=== PATIENT | male | born 1950 | race African-American/Black ===

== ENCOUNTER → 2018-04-29 | Outpatient (CLI) | payer MEDICARE ==
[~2018-04-29] MED LIST: OMNIPAQUE 350 MG/ML, 100ML BOTTLE ONE
== END | disposition home or self-care (01) ==
LOC: CFH 13:21
PROVIDERS: ATTEND Otolaryngology
DX: D38.0 Neoplasm of uncertain behavior of larynx (principal); R07.0 Pain in throat
CPT/HCPCS: 70491; 82565; Q9967

== ENCOUNTER 2018-07-05 11:50 | Inpatient (IN) | payer MEDICARE ==
[~2018-07-05] VITALS: Ht 182.9 cm; Wt 68.5 kg
[~2018-07-05 11:50] MED LIST changes: +AMIT100T PO; +AMLO10TA8 PO; +ATEN100T PO; +HYDR120S6 PO; +LISI40TA PO; +OMEP-110 PO; -OMNIPAQUE 350 MG/ML, 100ML BOTTLE ONE; +OXYC1TAB7 PO; +SIMV10TA3 PO; +SODI15OR3 PO
[2018-07-05] MEDS ORDERED: ONDANSETRON 2MG/ML, 2ML ONE (12:24)
[2018-07-05] MEDS ORDERED: MORPHINE SULFATE 4 MG/ML, 1ML ONE (12:25)
[2018-07-05] MEDS ORDERED: ONDANSETRON 2MG/ML, 2ML IVPush ONE (12:30)
[2018-07-05] MEDS ORDERED: MORPHINE SULFATE 4 MG/ML, 1ML IVPush PRN (12:30)
[2018-07-05] MEDS ORDERED: SODIUM CHLORIDE FLUSH 10ML SYR IVF ONE (12:30)
[2018-07-05 13:20] LABS: ALANINE AMINOTRANSFERASE 49 U/L (12-78); ALBUMIN 2.9 g/dL (3.4-5.0); ANION GAP 10 mmol/L (5-15); CHLORIDE 105 mmol/L (98-107)
[2018-07-05 13:23] LABS: MICROSCOPIC NOT IND
[2018-07-05 13:23] LABS: ALKALINE PHOSPHATASE 89 U/L (45-117); BILIRUBIN,TOTAL 0.5 mg/dL (0.2-1.0); TOTAL PROTEIN 7.6 g/dL (6.4-8.2)
[2018-07-05] MEDS ORDERED: CEFTAZIDIME PMX 2 GM/50ML 50 ML IV ONE (13:30)
[2018-07-05 13:31] LABS: CULTURE INDICATED? NO
[2018-07-05 13:33] LABS: MEAN CORPUSCULAR HEMOGLOBIN 28.4 pg (27.5-34.5); MEAN CORPUSCULAR HGB CONC 33.7 g/dL (33.2-36.2); MEAN CORPUSCULAR VOLUME 84.1 fL (81-97); MEAN PLATELET VOLUME 8.2 fL (7.4-10.4); PLATELET COUNT 63 x10^3/uL (130-400); RED BLOOD COUNT 3.06 x10^6/uL (4.38-5.82); RED CELL DISTRIBUTION WIDTH 14.2 % (9.4-14.8)
[2018-07-05 13:35] LABS: MD YES
[2018-07-05 13:43] LABS: BAND#(MANUAL) 0.11 x10^3/uL; BANDS%(MANUAL) 14 % (0-7); LYMPH#(MANUAL) 0.13 x10^3/uL (1-3.4); LYMPHS% (MANUAL) 16 % (22-44); MONOS#(MANUAL) 0.12 x10^3/uL (0.3-2.7); MONOS% (MANUAL) 15 % (2-9); SEG#(MANUAL) 0.44 x10^3/uL (1.8-6.8); SEGS% (MANUAL) 55 % (42-75)
[2018-07-05 13:44] LABS: <PLATELET ESTIMATE> DECREASED; <PLT MORPHOLOGY> NORMAL PLT MORPH; <RBC MORPHOLOGY> NORMAL
[2018-07-05] MEDS ORDERED: TBO-FILGRASTIM 480 MCG/0.8 ML SQ ONE (14:00)
[2018-07-05] MEDS ORDERED: VANCOMYCIN PER PHARMACY IV ONE (14:00)
[2018-07-05] MEDS ORDERED: VANCOMYCIN 1,400 MG in SODIUM CHLORIDE 0.9% 250 ML IV ONE (14:00)
[2018-07-05] MEDS ORDERED: SODIUM CHLORIDE 0.9%, 500ML IVBOLUS ONE ×2 (14:00)
--- NOTE | 2018-07-05 14:17 | NUR ---
BLOOD CULTURES STARTED PRIOR TO ABX
[2018-07-05] MEDS ORDERED: POLYETHYLENE GLYCOL 17 GM PACKET PO PRN (14:30)
[2018-07-05] MEDS ORDERED: ONDANSETRON 2MG/ML, 2ML IVPush PRN (14:30)
[2018-07-05] MEDS ORDERED: VANCOMYCIN PER PHARMACY MC PRN (14:30)
[2018-07-05] MEDS ORDERED: DOCUSATE 100 MG CAPSULE PO PRN (14:30)
[2018-07-05] MEDS ORDERED: LABETALOL 5MG/ML, 20ML IVPush PRN (14:30)
[2018-07-05] MEDS ORDERED: BISACODYL 10 MG SUPP PR PRN (14:30)
[2018-07-05] MEDS ORDERED: [UNRECOGNIZED DRUG - OTHER] PO PRN (14:30)
[2018-07-05 15:19] LABS: HCT (SEDRATE) 25.7 % (39.2-51.8)
[2018-07-05] MEDS ORDERED: PHARMACOKINETIC CONSULTATION MC ONE (15:30)
[2018-07-05] MEDS ORDERED: PHARMACOKINETIC MONITORING MC PRN (15:30)
[2018-07-05] MEDS: AMPICILLIN/SULBACTAM 3 GM in SODIUM CHLORIDE 0.9% 100 ML IV SCH (17:53)
[2018-07-05 18:04] VITALS: BP 166/65
[2018-07-05] MEDS ORDERED: HYDROcodone/APAP 7.5-325MG/15ML UDC ONE (18:32)
[2018-07-05] MEDS: NS + 20MEQ KCL 1,000 ML IV SCH (18:36)
[2018-07-05] MEDS: HYDROcodone/APAP 7.5-325MG/15ML UDC PO PRN (18:36)
[2018-07-05 20:58] VITALS: BP 118/55
[2018-07-05] MEDS: AMITRIPTYLINE 50 MG TABLET PO SCH (21:25)
[2018-07-05] MEDS: SIMVASTATIN 10 MG TABLET PO SCH (21:26)
[2018-07-05] MEDS: AQUAPHOR NATURAL HEALING OINT 50GM TP SCH (22:04)
[2018-07-06] MEDS: AMPICILLIN/SULBACTAM 3 GM in SODIUM CHLORIDE 0.9% 100 ML IV SCH ×2 (00:14→05:58)
[2018-07-06 03:49] VITALS: BP 127/53
[2018-07-06 04:54] LABS: MEAN CORPUSCULAR HEMOGLOBIN 27.9 pg (27.5-34.5); MEAN CORPUSCULAR VOLUME 84.5 fL (81-97); MEAN PLATELET VOLUME 8.1 fL (7.4-10.4); RED BLOOD COUNT 3.07 x10^6/uL (4.38-5.82); RED CELL DISTRIBUTION WIDTH 14.4 % (9.4-14.8)
[2018-07-06 04:55] LABS: PLATELET COUNT 48 x10^3/uL (130-400)
[2018-07-06 05:01] LABS: ALANINE AMINOTRANSFERASE 38 U/L (12-78); ALBUMIN 2.5 g/dL (3.4-5.0); ANION GAP 8 mmol/L (5-15); CALCIUM 9.5 mg/dL (8.5-10.1); CHLORIDE 112 mmol/L (98-107)
[2018-07-06 05:08] LABS: ALKALINE PHOSPHATASE 73 U/L (45-117); TOTAL PROTEIN 6.7 g/dL (6.4-8.2)
[2018-07-06 05:13] LABS: MD YES
[2018-07-06 05:34] LABS: BAND#(MANUAL) 0.15 x10^3/uL; BANDS%(MANUAL) 14 % (0-7); C-REACTIVE PROTEIN, QUANT > 19.00 mg/dL (0.02-0.49); LYMPH#(MANUAL) 0.24 x10^3/uL (1-3.4); LYMPHS% (MANUAL) 22 % (22-44); MONOS#(MANUAL) 0.15 x10^3/uL (0.3-2.7); MONOS% (MANUAL) 14 % (2-9); SEG#(MANUAL) 0.55 x10^3/uL (1.8-6.8); SEGS% (MANUAL) 50 % (42-75)
[2018-07-06 05:35] LABS: <PLATELET ESTIMATE> DECREASED; <PLT MORPHOLOGY> NORMAL PLT MORPH; ANISOCYTOSIS 1+; POLYCHROMASIA 1+
[2018-07-06] MEDS: NS + 20MEQ KCL 1,000 ML IV SCH (05:58)
[2018-07-06 07:35] VITALS: BP 125/66
[2018-07-06] MEDS: AQUAPHOR NATURAL HEALING OINT 50GM TP SCH ×2 (09:00→21:08)
[2018-07-06] MEDS: AMLODIPINE 10 MG TAB PO SCH (10:11)
[2018-07-06] MEDS: LISINOPRIL 20 MG TABLET PO SCH (10:14)
[2018-07-06 11:45] LABS: RAPID INFLUENZA A Negative (Negative); RAPID INFLUENZA B Negative (Negative)
[2018-07-06] MEDS: MEROPENEM 1 GM in SODIUM CHLORIDE 0.9% 100 ML IV SCH ×2 (12:39→21:02)
[2018-07-06 13:00] VITALS: BP 133/67
[2018-07-06] MEDS: MICAFUNGIN 100 MG in SODIUM CHLORIDE 0.9% 100 ML IV SCH (13:24)
[2018-07-06] MEDS: HYDROcodone/APAP 7.5-325MG/15ML UDC PO PRN (14:00)
[2018-07-06] MEDS: VANCOMYCIN 1,400 MG in SODIUM CHLORIDE 0.9% 250 ML IV SCH (16:09)
[2018-07-06] MEDS: MORPHINE SULFATE 4 MG/ML, 1ML IVPush PRN ×2 (18:55→21:03)
[2018-07-06 19:08] VITALS: BP 113/53
[2018-07-06] MEDS: AMITRIPTYLINE 50 MG TABLET PO SCH (21:03)
[2018-07-06] MEDS: SIMVASTATIN 10 MG TABLET PO SCH (21:03)
[2018-07-07 02:03] VITALS: BP 123/62
[2018-07-07] MEDS: MEROPENEM 1 GM in SODIUM CHLORIDE 0.9% 100 ML IV SCH ×3 (04:28→21:14)
[2018-07-07] MEDS: MORPHINE SULFATE 4 MG/ML, 1ML IVPush PRN ×4 (05:16→21:29)
[2018-07-07 05:37] LABS: MEAN CORPUSCULAR HEMOGLOBIN 28.1 pg (27.5-34.5); MEAN CORPUSCULAR HGB CONC 33.1 g/dL (33.2-36.2); MEAN CORPUSCULAR VOLUME 84.8 fL (81-97); MEAN PLATELET VOLUME 8.3 fL (7.4-10.4); RED BLOOD COUNT 2.77 x10^6/uL (4.38-5.82); RED CELL DISTRIBUTION WIDTH 14.4 % (9.4-14.8)
[2018-07-07 05:38] LABS: ALBUMIN 2.1 g/dL (3.4-5.0); ANION GAP 10 mmol/L (5-15); CALCIUM 8.9 mg/dL (8.5-10.1); CHLORIDE 110 mmol/L (98-107)
[2018-07-07 05:39] LABS: CREATININE 1.02 mg/dL (0.7-1.3)
[2018-07-07 05:49] LABS: PLATELET COUNT 33 x10^3/uL (130-400)
[2018-07-07 05:59] LABS: MD YES
[2018-07-07 06:04] LABS: <PLATELET ESTIMATE> DECREASED; <PLT MORPHOLOGY> NORMAL PLT MORPH; ANISOCYTOSIS 1+; LYMPH#(MANUAL) 0.26 x10^3/uL (1-3.4); LYMPHS% (MANUAL) 26 % (22-44); METAMYELOCYTES# (MANUAL) 0.02 x10^3/uL (0-0); METAMYELOCYTES% (MANUAL) 2 % (0-1); MONOS#(MANUAL) 0.26 x10^3/uL (0.3-2.7); MONOS% (MANUAL) 26 % (2-9); NRBC % (MANUAL) 2 % (0-1); POLYCHROMASIA 1+; SEG#(MANUAL) 0.46 x10^3/uL (1.8-6.8); SEGS% (MANUAL) 46 % (42-75)
[2018-07-07 06:06] LABS: TOXIC GRAN 1+
[2018-07-07 08:19] VITALS: BP 137/70
[2018-07-07] MEDS: TBO-FILGRASTIM 300 MCG/0.5 ML SQ SCH (09:48)
[2018-07-07] MEDS: AMLODIPINE 10 MG TAB PO SCH (09:48)
[2018-07-07] MEDS: LISINOPRIL 20 MG TABLET PO SCH (09:53)
[2018-07-07] MEDS: AQUAPHOR NATURAL HEALING OINT 50GM TP SCH ×2 (09:54→21:15)
[2018-07-07] MEDS: MICAFUNGIN 100 MG in SODIUM CHLORIDE 0.9% 100 ML IV SCH (14:19)
[2018-07-07] MEDS: SUCRALFATE 1 GM/10 ML UDC PO SCH ×2 (14:19→17:41)
[2018-07-07 15:04] VITALS: BP 130/72
[2018-07-07] MEDS: VANCOMYCIN 1,400 MG in SODIUM CHLORIDE 0.9% 250 ML IV SCH (15:49)
[2018-07-07 19:22] VITALS: BP 105/60
[2018-07-07] MEDS: AMITRIPTYLINE 50 MG TABLET PO SCH (21:15)
[2018-07-07] MEDS: SIMVASTATIN 10 MG TABLET PO SCH (21:15)
[2018-07-08 01:17] VITALS: BP 159/72
[2018-07-08] MEDS: ACETAMINOPHEN 325 MG TABLET PO PRN (01:27)
[2018-07-08] MEDS: MEROPENEM 1 GM in SODIUM CHLORIDE 0.9% 100 ML IV SCH ×3 (04:28→20:38)
[2018-07-08 05:09] LABS: MEAN CORPUSCULAR VOLUME 84.9 fL (81-97); RED BLOOD COUNT 2.94 x10^6/uL (4.38-5.82); RED CELL DISTRIBUTION WIDTH 14.9 % (9.4-14.8)
[2018-07-08 05:14] LABS: ANION GAP 6 mmol/L (5-15); CALCIUM 8.3 mg/dL (8.5-10.1); CHLORIDE 107 mmol/L (98-107); CREATININE 0.96 mg/dL (0.7-1.3)
[2018-07-08] MEDS: MORPHINE SULFATE 4 MG/ML, 1ML IVPush PRN ×3 (06:00→21:00)
[2018-07-08 06:11] LABS: PLATELET COUNT 21 x10^3/uL (130-400)
[2018-07-08 06:12] LABS: MD YES
[2018-07-08 06:16] LABS: BAND#(MANUAL) 0.02 x10^3/uL; BANDS%(MANUAL) 2 % (0-7); LYMPH#(MANUAL) 0.29 x10^3/uL (1-3.4); LYMPHS% (MANUAL) 32 % (22-44); MONOS#(MANUAL) 0.11 x10^3/uL (0.3-2.7); MONOS% (MANUAL) 12 % (2-9); SEG#(MANUAL) 0.49 x10^3/uL (1.8-6.8); SEGS% (MANUAL) 54 % (42-75)
[2018-07-08 06:18] LABS: ANISOCYTOSIS 1+; POLYCHROMASIA 1+
[2018-07-08 06:19] LABS: <PLATELET ESTIMATE> DECREASED; <PLT MORPHOLOGY> NORMAL PLT MORPH; TOXIC GRAN 1+
[2018-07-08 07:16] VITALS: BP 165/74
[2018-07-08] MEDS: LISINOPRIL 20 MG TABLET PO SCH (09:00)
[2018-07-08] MEDS: AQUAPHOR NATURAL HEALING OINT 50GM TP SCH ×2 (09:00→20:40)
[2018-07-08] MEDS: AMLODIPINE 10 MG TAB PO SCH (09:00)
[2018-07-08] MEDS: SUCRALFATE 1 GM/10 ML UDC PO SCH ×4 (09:01→20:38)
[2018-07-08] MEDS: TBO-FILGRASTIM 300 MCG/0.5 ML SQ SCH (12:15)
[2018-07-08] MEDS: MICAFUNGIN 100 MG in SODIUM CHLORIDE 0.9% 100 ML IV SCH (13:17)
[2018-07-08 14:11] VITALS: BP 152/65
[2018-07-08] MEDS: VANCOMYCIN 1,400 MG in SODIUM CHLORIDE 0.9% 250 ML IV SCH (15:50)
[2018-07-08 19:29] VITALS: BP 112/64
[2018-07-08] MEDS: SIMVASTATIN 10 MG TABLET PO SCH (20:39)
[2018-07-08] MEDS: OMEPRAZOLE 20 MG CAPSULE.DR PO SCH (20:39)
[2018-07-08] MEDS: AMITRIPTYLINE 50 MG TABLET PO SCH (20:39)
[2018-07-09] VITALS (7 sets, daily range): BP systolic 112–136; BP diastolic 64–74
[2018-07-09] MEDS: MEROPENEM 1 GM in SODIUM CHLORIDE 0.9% 100 ML IV SCH ×3 (04:24→20:45)
[2018-07-09] MEDS: SUCRALFATE 1 GM/10 ML UDC PO SCH ×4 (07:07→20:45)
[2018-07-09] MEDS: OMEPRAZOLE 20 MG CAPSULE.DR PO SCH (07:07)
[2018-07-09 08:16] LABS: ANION GAP 5 mmol/L (5-15); CALCIUM 8.7 mg/dL (8.5-10.1); CHLORIDE 104 mmol/L (98-107); CREATININE 0.99 mg/dL (0.7-1.3)
[2018-07-09 08:35] LABS: MEAN CORPUSCULAR HEMOGLOBIN 27.4 pg (27.5-34.5); MEAN CORPUSCULAR HGB CONC 32.4 g/dL (33.2-36.2); MEAN CORPUSCULAR VOLUME 84.5 fL (81-97); RED CELL DISTRIBUTION WIDTH 14.2 % (9.4-14.8)
[2018-07-09 08:37] LABS: BAND#(MANUAL) 0.07 x10^3/uL; BANDS%(MANUAL) 5 % (0-7); LYMPH#(MANUAL) 0.39 x10^3/uL (1-3.4); LYMPHS% (MANUAL) 30 % (22-44); MD YES; MONOS#(MANUAL) 0.08 x10^3/uL (0.3-2.7); MONOS% (MANUAL) 6 % (2-9); PLATELET COUNT 18 x10^3/uL (130-400); SEG#(MANUAL) 0.77 x10^3/uL (1.8-6.8); SEGS% (MANUAL) 59 % (42-75)
[2018-07-09 08:38] LABS: <PLATELET ESTIMATE> DECREASED; <PLT MORPHOLOGY> QNS FOR PLT MORPH
[2018-07-09] MEDS: AQUAPHOR NATURAL HEALING OINT 50GM TP SCH ×2 (09:00→20:48)
[2018-07-09] MEDS: TBO-FILGRASTIM 300 MCG/0.5 ML SQ SCH (09:27)
[2018-07-09] MEDS: LISINOPRIL 20 MG TABLET PO SCH (09:28)
[2018-07-09] MEDS: AMLODIPINE 10 MG TAB PO SCH (09:28)
[2018-07-09] MEDS: MORPHINE SULFATE 4 MG/ML, 1ML IVPush PRN ×2 (09:38→20:47)
[2018-07-09] MEDS: MICAFUNGIN 100 MG in SODIUM CHLORIDE 0.9% 100 ML IV SCH (13:00)
[2018-07-09] MEDS: ACETAMINOPHEN 325 MG TABLET PO PRN (14:59)
[2018-07-09] MEDS: AMITRIPTYLINE 50 MG TABLET PO SCH (20:44)
[2018-07-09] MEDS: SIMVASTATIN 10 MG TABLET PO SCH (20:45)
[2018-07-10 01:37] VITALS: BP 125/67
[2018-07-10] MEDS: MEROPENEM 1 GM in SODIUM CHLORIDE 0.9% 100 ML IV SCH (04:05)
[2018-07-10 07:46] LABS: MEAN CORPUSCULAR HEMOGLOBIN 27.8 pg (27.5-34.5); MEAN CORPUSCULAR VOLUME 84.2 fL (81-97); PLATELET COUNT 50 x10^3/uL (130-400); RED BLOOD COUNT 2.95 x10^6/uL (4.38-5.82); RED CELL DISTRIBUTION WIDTH 14.4 % (9.4-14.8)
[2018-07-10 07:55] LABS: ANION GAP 6 mmol/L (5-15); CALCIUM 8.7 mg/dL (8.5-10.1); CHLORIDE 104 mmol/L (98-107); CREATININE 0.98 mg/dL (0.7-1.3)
[2018-07-10 08:53] LABS: MD YES
[2018-07-10 09:00] LABS: BAND#(MANUAL) 0.21 x10^3/uL; BANDS%(MANUAL) 9 % (0-7); LYMPH#(MANUAL) 0.46 x10^3/uL (1-3.4); LYMPHS% (MANUAL) 20 % (22-44); MONOS#(MANUAL) 0.14 x10^3/uL (0.3-2.7); MONOS% (MANUAL) 6 % (2-9); REACTIVE LYMPHS # (MANUAL) 0.07 x10^3/uL (0-0); REACTIVE LYMPHS % (MANUAL) 3 % (0-0); SEG#(MANUAL) 1.43 x10^3/uL (1.8-6.8); SEGS% (MANUAL) 62 % (42-75)
[2018-07-10 09:01] LABS: ANISOCYTOSIS 1+
[2018-07-10] MEDS: SUCRALFATE 1 GM/10 ML UDC PO SCH ×4 (09:01→21:07)
[2018-07-10] MEDS: OMEPRAZOLE 20 MG CAPSULE.DR PO SCH (09:02)
[2018-07-10] MEDS: AMLODIPINE 10 MG TAB PO SCH (09:02)
[2018-07-10] MEDS: LISINOPRIL 20 MG TABLET PO SCH (09:02)
[2018-07-10 09:03] LABS: <PLATELET ESTIMATE> DECREASED; <PLT MORPHOLOGY> NORMAL PLT MORPH; TOXIC GRAN 1+
[2018-07-10] MEDS: AQUAPHOR NATURAL HEALING OINT 50GM TP SCH ×2 (09:04→21:00)
[2018-07-10] MEDS: TBO-FILGRASTIM 300 MCG/0.5 ML SQ SCH (09:30)
[2018-07-10] MEDS: HYDROcodone/APAP 7.5-325MG/15ML UDC PO PRN ×2 (09:30→20:18)
[2018-07-10 09:50] VITALS: BP 119/65
[2018-07-10 13:10] VITALS: BP 137/70
[2018-07-10] MEDS: AMITRIPTYLINE 50 MG TABLET PO SCH (20:19)
[2018-07-10] MEDS: SIMVASTATIN 10 MG TABLET PO SCH (20:19)
[2018-07-10 20:26] VITALS: BP 139/71
[2018-07-11 01:10] VITALS: BP 123/70
[2018-07-11 05:16] LABS: MEAN CORPUSCULAR HEMOGLOBIN 28.3 pg (27.5-34.5); MEAN CORPUSCULAR VOLUME 83.3 fL (81-97); RED BLOOD COUNT 2.84 x10^6/uL (4.38-5.82); RED CELL DISTRIBUTION WIDTH 14.2 % (9.4-14.8)
[2018-07-11 05:22] LABS: ANION GAP 4 mmol/L (5-15); CALCIUM 8.9 mg/dL (8.5-10.1); CHLORIDE 105 mmol/L (98-107); CREATININE 1.03 mg/dL (0.7-1.3)
[2018-07-11 05:48] LABS: MD YES; MEAN PLATELET VOLUME 8.6 fL (7.4-10.4)
[2018-07-11 05:49] LABS: PLATELET COUNT 31 x10^3/uL (130-400)
[2018-07-11 05:53] LABS: BAND#(MANUAL) 0.19 x10^3/uL; BANDS%(MANUAL) 6 % (0-7); LYMPH#(MANUAL) 0.68 x10^3/uL (1-3.4); LYMPHS% (MANUAL) 22 % (22-44); METAMYELOCYTES# (MANUAL) 0.03 x10^3/uL (0-0); METAMYELOCYTES% (MANUAL) 1 % (0-1); MONOS#(MANUAL) 0.31 x10^3/uL (0.3-2.7); MONOS% (MANUAL) 10 % (2-9); SEG#(MANUAL) 1.89 x10^3/uL (1.8-6.8); SEGS% (MANUAL) 61 % (42-75)
[2018-07-11 05:54] LABS: <PLATELET ESTIMATE> DECREASED; <PLT MORPHOLOGY> NORMAL PLT MORPH; ANISOCYTOSIS 1+; TOXIC GRAN 1+
[2018-07-11] MEDS: OMEPRAZOLE 20 MG CAPSULE.DR PO SCH (06:11)
[2018-07-11] MEDS: AQUAPHOR NATURAL HEALING OINT 50GM TP SCH (07:33)
[2018-07-11] MEDS: SUCRALFATE 1 GM/10 ML UDC PO SCH (07:33)
[2018-07-11] MEDS: AMLODIPINE 10 MG TAB PO SCH (07:33)
[2018-07-11] MEDS: TBO-FILGRASTIM 300 MCG/0.5 ML SQ SCH ×2 (07:33→08:45)
[2018-07-11] MEDS: LISINOPRIL 20 MG TABLET PO SCH (07:33)
[2018-07-11 07:36] VITALS: BP 139/76
[2018-07-11] MEDS ORDERED: CEPH-368 PO (09:09)
[2018-07-11] MEDS ORDERED: SUCR1ORA5 PO (09:09)
== END 2018-07-11 10:13 | disposition home or self-care (01) | DRG 871 ==
LOC: ED 12:59 → EDIP 13:45 → 3NW 14:35 → DCLOUNGE 07-11 10:07
PROVIDERS: ADMIT Hospitalist; ATTEND Hospitalist
PROC: 30233R1 Transfusion of Nonautologous Platelets into Peripheral Vein, Percutaneous Approach (ICD-10-PCS; principal; 2018-07-09)
DX: A41.9 Sepsis, unspecified organism (principal); N17.0 Acute kidney failure with tubular necrosis; E43 Unspecified severe protein-calorie malnutrition; L03.221 Cellulitis of neck; D64.81 Anemia due to antineoplastic chemotherapy; C14.0 Malignant neoplasm of pharynx, unspecified; C32.9 Malignant neoplasm of larynx, unspecified; Z68.20 Body mass index [BMI] 20.0-20.9, adult; E78.5 Hyperlipidemia, unspecified; I11.9 Hypertensive heart disease without heart failure; I35.8 Other nonrheumatic aortic valve disorders; J43.9 Emphysema, unspecified; K12.30 Oral mucositis (ulcerative), unspecified; K70.30 Alcoholic cirrhosis of liver without ascites; L30.9 Dermatitis, unspecified; F12.90 Cannabis use, unspecified, uncomplicated; R50.81 Fever presenting with conditions classified elsewhere; T20.07XA Burn of unspecified degree of neck, initial encounter; Z83.3 Family history of diabetes mellitus; Z85.46 Personal history of malignant neoplasm of prostate; B34.9 Viral infection, unspecified; E86.9 Volume depletion, unspecified; T45.1X5A Adverse effect of antineoplastic and immunosuppressive drugs, initial encounter; Z82.49 Family history of ischemic heart disease and other diseases of the circulatory system; Z87.891 Personal history of nicotine dependence; Z90.49 Acquired absence of other specified parts of digestive tract; Z92.3 Personal history of irradiation; Y92.89 Other specified places as the place of occurrence of the external cause; D63.0 Anemia in neoplastic disease; D69.59 Other secondary thrombocytopenia
CPT/HCPCS: 36415; 71045; 80048; 80053; 81003; 82040; 83605; 84145; 85025; 85651; 86140; 86850; 86900; 87040; 87070; 87077; 87086; 87186; 87205; 87400; 87633; 93306; G0378; J0295; J2185; J2248; J2405; J3370; J3480; J0713; J1447; J7040; J7050; P9037

== ENCOUNTER 2018-08-23 20:02 | Emergency (ER) | payer MEDICARE ==
[~2018-08-23] VITALS: Ht 182.9 cm; Wt 69.0 kg
[~2018-08-23 20:02] MED LIST changes: +CEPH-368 PO; +FLUC100T PO; +SUCR1ORA5 PO; +TAMS-11 PO
--- NOTE | 2018-08-23 20:23 | NUR ---
HERE WITH WHO NOTES FEVER AT 1600,103. FEVER STARTED YESTERDAY GAVE NOTHING FOR FEVER, STATES WAS 103. GAVE A PERCOCET AT 1999 FOR HEADACHE, LAST CHEMO END OF JULY, LAST 3 RADIATION TREATMENT AUGUST 08,,. HAD A REICH WHILE IN HOSPITAL, HAS BEEN VOIDING WELL SINCE
--- NOTE | 2018-08-23 20:41 | NUR ---
VERY PLEASANT GENTLEMAN AWARE OF THE NEED FOR URINE SPECIMEN, HE NOTES THAT HE JUST WENT WENT TO RESTROOM BEFORE COMING HERE.
[2018-08-23 21:12] LABS: BASOPHILS % (AUTO) 0 % (0-1); EOSINOPHILS % (AUTO) 0 % (1-7); LYMPHOCYTES # (AUTO) 0.38 x10^3/uL (1-3.4); LYMPHOCYTES % (AUTO) 7 % (22-44); MD NO; MEAN CORPUSCULAR HEMOGLOBIN 28.2 pg (27.5-34.5); MEAN CORPUSCULAR HGB CONC 32.9 g/dL (33.2-36.2); MEAN CORPUSCULAR VOLUME 85.9 fL (81-97); MEAN PLATELET VOLUME 7.9 fL (7.4-10.4); MONOCYTES # (AUTO) 0.84 x10^3/uL (0.2-0.8); MONOCYTES % (AUTO) 15 % (2-9); NEUTROPHILS # (AUTO) 4.49 x10^3/uL (1.8-6.8); NEUTROPHILS % (AUTO) 79 % (42-75); PLATELET COUNT 172 x10^3/uL (130-400); RED BLOOD COUNT 2.76 x10^6/uL (4.38-5.82); RED CELL DISTRIBUTION WIDTH 22.5 % (9.4-14.8)
[2018-08-23 21:14] LABS: ALANINE AMINOTRANSFERASE 37 U/L (12-78); ALBUMIN 2.9 g/dL (3.4-5.0); ANION GAP 11 mmol/L (5-15); CALCIUM 9.4 mg/dL (8.5-10.1); CHLORIDE 99 mmol/L (98-107); CREATININE 1.67 mg/dL (0.7-1.3)
[2018-08-23 21:17] LABS: ALKALINE PHOSPHATASE 89 U/L (45-117); BILIRUBIN,TOTAL 0.5 mg/dL (0.2-1.0); TOTAL PROTEIN 7.6 g/dL (6.4-8.2)
--- NOTE | 2018-08-23 21:54 | NUR ---
STILL HAS BEEN UNABLE TO VOID AT HTIS TIME, B/P 90/56, MD AWARE AND 500ML FLUID BOLUS GIVEN
[2018-08-23] MEDS ORDERED: SODIUM CHLORIDE 0.9%, 500ML IVBOLUS ONE (22:00)
--- NOTE | 2018-08-23 22:43 | NUR ---
WARM BLANKET GIVEN, REMAINS AT BEDSIDE, PT IS WITHOUT ANY COMPLAINTS, HAS TRIED SEVERAL TIMES TO VOID, DENIES DISCOMFORT OR FEELING UNABLE, PT WILL ATTEMPT AGAIN SOON THEN WE WILL RE-EVAL THE SITUATION
[2018-08-23 23:19] LABS: MICROSCOPIC INDICATED
--- NOTE | 2018-08-23 23:19 | NUR ---
URINE SPECIMEN COLLECTED AND SENT, CLOUDY AND MALODOROUS
[2018-08-23 23:38] LABS: CULTURE INDICATED? YES
[2018-08-24] MEDS ORDERED: CEFTRIAXONE PMX 1GM/50ML 50 ML ONE (00:04)
[2018-08-24] MEDS ORDERED: CEFTRIAXONE PMX 1GM/50ML 50 ML IV ONE (00:30)
[2018-08-24 00:47] VITALS: BP 120/60
--- NOTE | 2018-08-24 10:33 | NUR ---
Positive blood culture result given to Dr. Malik, per Dr. Malik patient needs to return to Emergency Department for reevaluation and potential admission to the hospital. Called and spoke with patient's Norma, results given and Norma to return to Emergency Department with Santana immediately.
== END 2018-08-24 00:49 | disposition home or self-care (01) ==
LOC: ED 21:47
DX: N39.0 Urinary tract infection, site not specified (principal); N28.9 Disorder of kidney and ureter, unspecified; R50.81 Fever presenting with conditions classified elsewhere; I10 Essential (primary) hypertension; Z87.891 Personal history of nicotine dependence
CPT/HCPCS: 36415; 71045; 80053; 81001; 83605; 84145; 85025; 87040; 87077; 87086; 87186; 96365; 99284; J0696; J7040

== ENCOUNTER 2018-08-24 12:52 | Inpatient (IN) | payer MEDICARE ==
[~2018-08-24] VITALS: Ht 182.9 cm; Wt 70.8 kg
[2018-08-24] MEDS ORDERED: SODIUM CHLORIDE FLUSH 10ML SYR IVF ONE (13:30)
[2018-08-24] MEDS ORDERED: SODIUM CHLORIDE 0.9% 1,000ML IVBOLUS ONE (13:30)
[2018-08-24] MEDS ORDERED: CEFEPIME 2 GM in DEXTROSE 5% 100 ML IV ONE (13:30)
[2018-08-24 13:46] LABS: MEAN CORPUSCULAR HEMOGLOBIN 28.1 pg (27.5-34.5); MEAN CORPUSCULAR HGB CONC 32.7 g/dL (33.2-36.2); MEAN CORPUSCULAR VOLUME 86.1 fL (81-97); MEAN PLATELET VOLUME 8.4 fL (7.4-10.4); PLATELET COUNT 185 x10^3/uL (130-400); RED BLOOD COUNT 2.91 x10^6/uL (4.38-5.82); RED CELL DISTRIBUTION WIDTH 22.8 % (9.4-14.8)
[2018-08-24 13:50] LABS: ANION GAP 9 mmol/L (5-15); CALCIUM 9.9 mg/dL (8.5-10.1); CHLORIDE 101 mmol/L (98-107)
[2018-08-24 13:54] LABS: ALANINE AMINOTRANSFERASE 55 U/L (12-78); ALKALINE PHOSPHATASE 91 U/L (45-117); BILIRUBIN,TOTAL 0.5 mg/dL (0.2-1.0); CREATININE 1.49 mg/dL (0.7-1.3); TOTAL PROTEIN 7.9 g/dL (6.4-8.2)
[2018-08-24 14:10] LABS: MD MORPH REVIEW ONLY
[2018-08-24 14:11] LABS: ANISOCYTOSIS 1+; HYPOCHROMIA 1+
[2018-08-24 14:14] LABS: <PLATELET ESTIMATE> ADEQUATE; <PLT MORPHOLOGY> NORMAL PLT MORPH
[2018-08-24 14:15] LABS: BASOPHILS % (AUTO) 0 % (0-1); EOSINOPHILS % (AUTO) 0 % (1-7); LYMPHOCYTES # (AUTO) 0.34 x10^3/uL (1-3.4); LYMPHOCYTES % (AUTO) 6 % (22-44); MONOCYTES # (AUTO) 0.75 x10^3/uL (0.2-0.8); MONOCYTES % (AUTO) 14 % (2-9); NEUTROPHILS # (AUTO) 4.24 x10^3/uL (1.8-6.8); NEUTROPHILS % (AUTO) 80 % (42-75)
[2018-08-24] MEDS ORDERED: ACETAMINOPHEN 325 MG TABLET PO PRN (14:30)
[2018-08-24] MEDS ORDERED: ONDANSETRON 2MG/ML, 2ML IVPush PRN (14:30)
[2018-08-24] MEDS ORDERED: LABETALOL 5MG/ML, 20ML IVPush PRN (14:30)
--- NOTE | 2018-08-24 15:08 | NUR ---
SBAR TO GABBI MARTIN VIA TELEPHONE
[2018-08-24 15:45] VITALS: BP 124/64
[2018-08-24] MEDS: SUCRALFATE 1 GM/10 ML UDC PO SCH ×2 (16:59→21:58)
[2018-08-24] MEDS: PIPERACILLIN/TAZO/PMX 3.375GM 50 ML IV SCH ×2 (16:59→22:54)
[2018-08-24] MEDS: HEPARIN 5,000 UNITS/ML, 1ML SQ SCH (16:59)
[2018-08-24] MEDS: SODIUM CHLORIDE 0.9% 1,000 ML IV SCH (17:00)
[2018-08-24 19:59] VITALS: BP 121/53
[2018-08-24] MEDS ORDERED: AMITRIPTYLINE 100 MG TABLET PO SCH (21:00)
[2018-08-24] MEDS: AMITRIPTYLINE 50 MG TABLET PO SCH (21:57)
[2018-08-24] MEDS: SIMVASTATIN 10 MG TABLET PO SCH (21:58)
[2018-08-24] MEDS ORDERED: OXYcodone 5 MG/5 ML ORAL.SOL UDC PEG ONE (22:00)
[2018-08-25] MEDS: HEPARIN 5,000 UNITS/ML, 1ML SQ SCH ×3 (01:27→16:57)
[2018-08-25 03:52] VITALS: BP 125/54
[2018-08-25] MEDS: PIPERACILLIN/TAZO/PMX 3.375GM 50 ML IV SCH ×3 (05:55→20:55)
[2018-08-25 07:39] VITALS: BP 110/52
[2018-08-25] MEDS: TAMSULOSIN 0.4 MG CAP.ER.24H PO SCH ×2 (08:08→08:14)
[2018-08-25] MEDS: ATENOLOL 100 MG TABLET PO SCH (08:08)
[2018-08-25] MEDS: SUCRALFATE 1 GM/10 ML UDC PO SCH ×4 (08:08→20:55)
[2018-08-25] MEDS: OMEPRAZOLE 20 MG CAPSULE.DR PO SCH (08:09)
[2018-08-25] MEDS: SODIUM CHLORIDE 0.9% 1,000 ML IV SCH ×2 (08:10→20:54)
[2018-08-25 12:33] VITALS: BP 118/63
--- NOTE | 2018-08-25 12:57 | NUR ---
REC: NPO with PEG except sips/chips of water only; strict aspiration precautions Addendum: 08/25/18 at 1257 by Nicole WILLARD Amended: Links added.
--- NOTE | 2018-08-25 12:57 | NUR ---
Olema sheet with swallow precautions hung in room to enhance communication between staff members Addendum: 08/25/18 at 1258 by Nicole WILLARD Amended: Links added.
[2018-08-25 13:03] LABS: ALANINE AMINOTRANSFERASE 80 U/L (12-78); ALBUMIN 2.3 g/dL (3.4-5.0); ANION GAP 9 mmol/L (5-15); CALCIUM 8.7 mg/dL (8.5-10.1); CHLORIDE 107 mmol/L (98-107); CREATININE 1.27 mg/dL (0.7-1.3)
[2018-08-25 13:05] LABS: ALKALINE PHOSPHATASE 89 U/L (45-117); BILIRUBIN,TOTAL 0.3 mg/dL (0.2-1.0); TOTAL PROTEIN 6.2 g/dL (6.4-8.2)
[2018-08-25 13:17] LABS: MD YES; MEAN CORPUSCULAR HEMOGLOBIN 27.5 pg (27.5-34.5); MEAN PLATELET VOLUME 8.6 fL (7.4-10.4); PLATELET COUNT 169 x10^3/uL (130-400); RED BLOOD COUNT 2.49 x10^6/uL (4.38-5.82); RED CELL DISTRIBUTION WIDTH 22.9 % (9.4-14.8)
[2018-08-25 13:50] LABS: BAND#(MANUAL) 0.06 x10^3/uL; BANDS%(MANUAL) 2 % (0-7); EOS#(MANUAL) 0.13 x10^3/uL (0.0-0.4); EOS% (MANUAL) 4 % (1-7); LYMPH#(MANUAL) 0.54 x10^3/uL (1-3.4); LYMPHS% (MANUAL) 17 % (22-44); MONOS#(MANUAL) 0.45 x10^3/uL (0.3-2.7); MONOS% (MANUAL) 14 % (2-9); SEG#(MANUAL) 2.02 x10^3/uL (1.8-6.8); SEGS% (MANUAL) 63 % (42-75)
[2018-08-25 13:51] LABS: <PLATELET ESTIMATE> ADEQUATE; <PLT MORPHOLOGY> NORMAL PLT MORPH; ANISOCYTOSIS 1+; HYPOCHROMIA 1+; POLYCHROMASIA 1+
--- NOTE | 2018-08-25 15:11 | NUR ---
Jevity 1.5 goal: 70 ml/hr Addendum: 08/25/18 at [address] Amended: Links added.
[2018-08-25 16:29] VITALS: BP 131/67
[2018-08-25 16:48] VITALS: BP 126/68
[2018-08-25] MEDS: OXYcodone 5 MG/5 ML ORAL.SOL UDC PO PRN (16:57)
[2018-08-25 19:31] VITALS: BP 133/69
[2018-08-25] MEDS: SIMVASTATIN 10 MG TABLET PO SCH (20:55)
[2018-08-25] MEDS: AMITRIPTYLINE 50 MG TABLET PO SCH (20:55)
[2018-08-26 01:11] VITALS: BP 124/68
[2018-08-26] MEDS: PIPERACILLIN/TAZO/PMX 3.375GM 50 ML IV SCH ×2 (03:17→08:23)
[2018-08-26 04:50] LABS: ALANINE AMINOTRANSFERASE 62 U/L (12-78); ALBUMIN 2.1 g/dL (3.4-5.0); ANION GAP 8 mmol/L (5-15); CALCIUM 8.8 mg/dL (8.5-10.1); CHLORIDE 111 mmol/L (98-107); CREATININE 1.15 mg/dL (0.7-1.3)
[2018-08-26 04:53] LABS: ALKALINE PHOSPHATASE 84 U/L (45-117); BILIRUBIN,TOTAL 0.3 mg/dL (0.2-1.0); TOTAL PROTEIN 5.9 g/dL (6.4-8.2)
[2018-08-26 07:54] LABS: RED BLOOD COUNT 2.76 x10^6/uL (4.38-5.82)
[2018-08-26 07:55] LABS: MEAN CORPUSCULAR HEMOGLOBIN 28.9 pg (27.5-34.5); MEAN CORPUSCULAR VOLUME 85.2 fL (81-97); MEAN PLATELET VOLUME 8.5 fL (7.4-10.4); PLATELET COUNT 159 x10^3/uL (130-400); RED CELL DISTRIBUTION WIDTH 21.8 % (9.4-14.8)
[2018-08-26 08:06] LABS: FOLATE LEVEL 18.8 ng/mL (3.1-17.5)
[2018-08-26 08:13] LABS: MD YES
[2018-08-26 08:19] LABS: BAND#(MANUAL) 0.36 x10^3/uL; BANDS%(MANUAL) 10 % (0-7); EOS#(MANUAL) 0.11 x10^3/uL (0.0-0.4); EOS% (MANUAL) 3 % (1-7); LYMPH#(MANUAL) 0.61 x10^3/uL (1-3.4); LYMPHS% (MANUAL) 17 % (22-44); MONOS% (MANUAL) 11 % (2-9); REACTIVE LYMPHS # (MANUAL) 0.04 x10^3/uL (0-0); REACTIVE LYMPHS % (MANUAL) 1 % (0-0); SEG#(MANUAL) 2.09 x10^3/uL (1.8-6.8); SEGS% (MANUAL) 58 % (42-75)
[2018-08-26 08:20] LABS: POLYCHROMASIA 1+
[2018-08-26 08:21] LABS: ANISOCYTOSIS 2+
[2018-08-26 08:23] LABS: <PLATELET ESTIMATE> ADEQUATE; <PLT MORPHOLOGY> NORMAL PLT MORPH
[2018-08-26] MEDS: OMEPRAZOLE 20 MG CAPSULE.DR PO SCH (08:23)
[2018-08-26] MEDS: SUCRALFATE 1 GM/10 ML UDC PO SCH ×4 (08:23→21:19)
[2018-08-26] MEDS: TAMSULOSIN 0.4 MG CAP.ER.24H PO SCH (08:23)
[2018-08-26] MEDS: SODIUM CHLORIDE 0.9% 1,000 ML IV SCH (08:24)
[2018-08-26] MEDS: ATENOLOL 100 MG TABLET PO SCH (08:24)
[2018-08-26] MEDS: OXYcodone 5 MG/5 ML ORAL.SOL UDC PO PRN (08:33)
[2018-08-26 09:00] VITALS: BP 110/60
[2018-08-26] MEDS: AMPICILLIN/SULBACTAM 1,500 MG in SODIUM CHLORIDE 0.9% 50 ML IV SCH ×3 (11:33→23:10)
[2018-08-26 12:18] LABS: OCCULT BLOOD NEGATIVE (NEGATIVE)
[2018-08-26 13:40] VITALS: BP 118/64
[2018-08-26 19:29] VITALS: BP 134/64
[2018-08-26] MEDS: SIMVASTATIN 10 MG TABLET PO SCH (21:18)
[2018-08-26] MEDS: AMITRIPTYLINE 50 MG TABLET PO SCH (21:19)
[2018-08-27 02:18] VITALS: BP 124/53
[2018-08-27 04:41] LABS: BASOPHILS # (AUTO) 0.01 x10^3/uL (0-0.1); BASOPHILS % (AUTO) 0 % (0-1); EOSINOPHILS # (AUTO) 0.07 x10^3/uL (0-0.4); EOSINOPHILS % (AUTO) 2 % (1-7); LYMPHOCYTES # (AUTO) 0.61 x10^3/uL (1-3.4); LYMPHOCYTES % (AUTO) 14 % (22-44); MD NO; MEAN CORPUSCULAR HEMOGLOBIN 28.3 pg (27.5-34.5); MEAN CORPUSCULAR HGB CONC 32.8 g/dL (33.2-36.2); MEAN CORPUSCULAR VOLUME 86.3 fL (81-97); MEAN PLATELET VOLUME 8.2 fL (7.4-10.4); MONOCYTES # (AUTO) 0.56 x10^3/uL (0.2-0.8); MONOCYTES % (AUTO) 13 % (2-9); NEUTROPHILS % (AUTO) 71 % (42-75); PLATELET COUNT 190 x10^3/uL (130-400); RED BLOOD COUNT 2.83 x10^6/uL (4.38-5.82); RED CELL DISTRIBUTION WIDTH 21.6 % (9.4-14.8)
[2018-08-27 04:53] LABS: ALBUMIN 2.3 g/dL (3.4-5.0); ANION GAP 5 mmol/L (5-15); CALCIUM 8.7 mg/dL (8.5-10.1); CHLORIDE 111 mmol/L (98-107)
[2018-08-27 04:56] LABS: ALANINE AMINOTRANSFERASE 50 U/L (12-78); ALKALINE PHOSPHATASE 94 U/L (45-117); BILIRUBIN,TOTAL 0.4 mg/dL (0.2-1.0); CREATININE 1.01 mg/dL (0.7-1.3); TOTAL PROTEIN 6.2 g/dL (6.4-8.2)
[2018-08-27] MEDS: AMPICILLIN/SULBACTAM 1,500 MG in SODIUM CHLORIDE 0.9% 50 ML IV SCH ×2 (04:56→11:39)
[2018-08-27] MEDS ORDERED: PANTOPRAZOLE 40 MG IV IVPush SCH ×2 (06:00)
[2018-08-27 07:43] VITALS: BP 122/68
[2018-08-27] MEDS: TAMSULOSIN 0.4 MG CAP.ER.24H PO SCH (09:00)
[2018-08-27] MEDS: SUCRALFATE 1 GM/10 ML UDC PO SCH ×3 (10:22→16:38)
[2018-08-27] MEDS: OXYcodone 5 MG/5 ML ORAL.SOL UDC PO PRN ×2 (10:22→16:38)
[2018-08-27] MEDS: SODIUM CHLORIDE 0.9% 1,000 ML IV SCH (10:22)
[2018-08-27] MEDS: ATENOLOL 100 MG TABLET PO SCH (10:23)
[2018-08-27 11:24] LABS: OCCULT BLOOD NEGATIVE (NEGATIVE)
[2018-08-27] MEDS ORDERED: CEFD300C37 PO (13:00)
== END 2018-08-27 17:40 | disposition home or self-care (01) | DRG 683 ==
LOC: ED 13:35 → EDIP 13:47 → 3NW 15:38
PROVIDERS: ADMIT Internal Medicine; ATTEND Internal Medicine
PROC: 30233N1 Transfusion of Nonautologous Red Blood Cells into Peripheral Vein, Percutaneous Approach (ICD-10-PCS; principal; 2018-08-25)
DX: N17.9 Acute kidney failure, unspecified (principal); E44.0 Moderate protein-calorie malnutrition; E87.1 Hypo-osmolality and hyponatremia; R78.81 Bacteremia; N12 Tubulo-interstitial nephritis, not specified as acute or chronic; E78.5 Hyperlipidemia, unspecified; D64.9 Anemia, unspecified; B96.20 Unspecified Escherichia coli [E. coli] as the cause of diseases classified elsewhere; E86.1 Hypovolemia; I10 Essential (primary) hypertension; R73.9 Hyperglycemia, unspecified; R13.10 Dysphagia, unspecified; Z85.21 Personal history of malignant neoplasm of larynx; Z85.46 Personal history of malignant neoplasm of prostate; Z87.891 Personal history of nicotine dependence; Z92.21 Personal history of antineoplastic chemotherapy; Z68.21 Body mass index [BMI] 21.0-21.9, adult
CPT/HCPCS: 36415; 80053; 82272; 82607; 82728; 82746; 83540; 83550; 83605; 83735; 84100; 85014; 85018; 85025; 86850; 86900; 86923; 87040; 96365; G0378; J1644; J2543; C9113; J0295; J7030; P9040

== ENCOUNTER 2018-10-29 07:55 | Emergency (ER) | payer MEDICARE ==
[~2018-10-29] VITALS: Ht 182.9 cm; Wt 72.0 kg
[~2018-10-29 07:55] MED LIST changes: +CEFD300C37 PO
--- NOTE | 2018-10-29 08:13 | NUR ---
PT REPORTS HIS NOSE HAS BEEN BLEEDING SINCE SATURDAY, INTERMITTENTLY. PT HAS A COTTON PLUG IN HIS NOSE. PT STATES THE BLOOD IS COMING FROM BOTH HIS NOSE AND THROAT. DELOIN BACK, PT PCP, INSTRUCTED HIM TO PACK NOSE WITH COTTON. PT WAS RECENTLY DIAGNOSED WITH THROAT CA AND JUST FINISHED [facility]O IN AUGUST 2018.
[2018-10-29] MEDS ORDERED: BACITRACIN ZINC OINT 500U/GM, 0.9 GM TP ONE (08:30)
[2018-10-29] MEDS ORDERED: OXYC-302 PO (08:36)
[2018-10-29] MEDS ORDERED: ATOR10TA9 PO (08:37)
[2018-10-29] MEDS ORDERED: OXYMETAZOLINE NASAL SPRAY 0.05%,30ML ONE (08:54)
[2018-10-29] MEDS ORDERED: COCAINE TOPICAL SOLN 4%, 4ML ONE (08:54)
[2018-10-29] MEDS ORDERED: BACITRACIN ZINC OINT 500U/GM, 0.9 GM ONE (08:55)
[2018-10-29] MEDS ORDERED: COCAINE TOPICAL SOLN 4%, 4ML TP ONE (09:00)
[2018-10-29] MEDS ORDERED: OXYMETAZOLINE NASAL SPRAY 0.05%, 15ML NAS ONE (09:00)
--- NOTE | 2018-10-29 09:26 | NUR ---
PT REPORTS HE THINKS THE BLEEDING IS DECREASING. SUPPLIES AT BEDSIDE, PER MD REQUEST. VSS. NO ACUTE SIGNS OF DISTRESS. AT BEDSIDE.
[2018-10-29 09:58] LABS: BASOPHILS % (AUTO) 0 % (0-1); EOSINOPHILS % (AUTO) 0 % (1-7); LYMPHOCYTES # (AUTO) 0.58 x10^3/uL (1-3.4); LYMPHOCYTES % (AUTO) 9 % (22-44); MD NO; MEAN CORPUSCULAR HEMOGLOBIN 29.2 pg (27.5-34.5); MEAN CORPUSCULAR HGB CONC 31.8 g/dL (33.2-36.2); MEAN CORPUSCULAR VOLUME 91.8 fL (81-97); MEAN PLATELET VOLUME 8.4 fL (7.4-10.4); MONOCYTES # (AUTO) 0.67 x10^3/uL (0.2-0.8); MONOCYTES % (AUTO) 11 % (2-9); NEUTROPHILS # (AUTO) 5.11 x10^3/uL (1.8-6.8); NEUTROPHILS % (AUTO) 80 % (42-75); PLATELET COUNT 149 x10^3/uL (130-400); RED BLOOD COUNT 4.12 x10^6/uL (4.38-5.82); RED CELL DISTRIBUTION WIDTH 15.3 % (9.4-14.8)
[2018-10-29 10:09] LABS: ALBUMIN 3.7 g/dL (3.4-5.0); ANION GAP 7 mmol/L (5-15); CALCIUM 9.9 mg/dL (8.5-10.1); CHLORIDE 105 mmol/L (98-107); CREATININE 1.29 mg/dL (0.7-1.3)
--- NOTE | 2018-10-29 10:32 | NUR ---
PT DENIES NEEDS. VSS. NO ACUTE SIGNS OF DISTRESS.
[2018-10-29 10:56] VITALS: BP 117/81
== END 2018-10-29 11:27 | disposition home or self-care (01) ==
LOC: ED 09:16
DX: R04.0 Epistaxis (principal); I10 Essential (primary) hypertension; E78.5 Hyperlipidemia, unspecified
CPT/HCPCS: 30901; 30905; 36415; 80048; 82040; 85025; 99284

== ENCOUNTER → 2019-08-20 | Outpatient (CLI) | payer MEDICARE ==
[~2019-08-20] MED LIST changes: +ATOR10TA9 PO; +OXYC-302 PO; +SIMV10TA18 PO; -SIMV10TA3 PO; -SODI15OR3 PO; +SODI15OR8 PO
== END | disposition home or self-care (01) ==
LOC: RAD 07:29
PROVIDERS: ATTEND Internal Medicine Geriatric Medicine
DX: C14.0 Malignant neoplasm of pharynx, unspecified (principal)
CPT/HCPCS: 74220

== ENCOUNTER 2019-11-10 07:42 | Day surgery (SDC) | payer MEDICARE ==
[~2019-11-10] VITALS: Ht 182.9 cm; Wt 82.2 kg
[~2019-11-10 07:42] MED LIST changes: +ACETAMINOPHEN 325 MG TABLET PO PRN; +EPHEDRINE 50 MG/ML, 1ML IVPush PRN; +FENTANYL PF 100 MCG/2ML IV PRN; +HYDROmorphone 1 MG/ML, 1ML INJ IVPush PRN; +LABETALOL 5MG/ML, 20ML IV PRN; +MEPERIDINE/PF 25MG/0.5ML IVPush PRN; +ONDANSETRON 2MG/ML, 2ML IVPush PRN; +OXYcodone 5 MG/5 ML ORAL.SOL UDC PO PRN; +PROMETHAZINE 25 MG/ML, 1ML IVPush PRN; +hydrALAzine 20 MG/ML, 1ML IV PRN
[2019-11-10] MEDS ORDERED: PLEASE ENTER HEIGHT AND WEIGHT MC SCH (08:00)
[2019-11-10] MEDS ORDERED: LACTATED RINGERS 1,000 ML IV SCH (08:16)
[2019-11-10] MEDS ORDERED: CHLORHEXIDINE 15 ML UDC MM ONE (08:30)
[2019-11-10 08:33] VITALS: BP 138/71
[2019-11-10] MEDS ORDERED: CHLORHEXIDINE 15 ML UDC ONE (08:38)
[2019-11-10] MEDS ORDERED: PROPOFOL 50 ML ONE (12:26)
[2019-11-10] MEDS ORDERED: SUCCINYLCHOLINE 20 MG/ML, 10ML ONE (12:54)
== END 2019-11-10 14:30 | disposition home or self-care (01) ==
LOC: OUT 07:42
PROVIDERS: ATTEND Internal Medicine Geriatric Medicine
DX: R13.10 Dysphagia, unspecified (principal); Z11.59 Encounter for screening for other viral diseases; I10 Essential (primary) hypertension; E78.5 Hyperlipidemia, unspecified; Z85.89 Personal history of malignant neoplasm of other organs and systems; Z88.8 Allergy status to other drugs, medicaments and biological substances; Z92.3 Personal history of irradiation; Z92.21 Personal history of antineoplastic chemotherapy
CPT/HCPCS: 43235; 87635; 93005; J0330; J2704; J7120

== ENCOUNTER → 2019-11-24 | Outpatient (CLI) | payer MEDICARE ==
[~2019-11-24] MED LIST changes: -ACETAMINOPHEN 325 MG TABLET PO PRN; -EPHEDRINE 50 MG/ML, 1ML IVPush PRN; -FENTANYL PF 100 MCG/2ML IV PRN; -HYDROmorphone 1 MG/ML, 1ML INJ IVPush PRN; -LABETALOL 5MG/ML, 20ML IV PRN; -MEPERIDINE/PF 25MG/0.5ML IVPush PRN; +OMNIPAQUE 350 MG/ML, 100ML BOTTLE ONE; -ONDANSETRON 2MG/ML, 2ML IVPush PRN; -OXYcodone 5 MG/5 ML ORAL.SOL UDC PO PRN; -PROMETHAZINE 25 MG/ML, 1ML IVPush PRN; -hydrALAzine 20 MG/ML, 1ML IV PRN
== END | disposition home or self-care (01) ==
LOC: CFH 11:43
PROVIDERS: ATTEND Internal Medicine Gastroenterology
DX: Z85.9 Personal history of malignant neoplasm, unspecified (principal)
CPT/HCPCS: 70491; 82565; Q9967

== ENCOUNTER → 2020-01-07 | Outpatient (CLI) | payer MEDICARE | END | disposition home or self-care (01) | LOC: CFH 07:47 | PROVIDERS: ATTEND Internal Medicine Gastroenterology | DX: C14.0 Malignant neoplasm of pharynx, unspecified (principal); J84.10 Pulmonary fibrosis, unspecified; J92.9 Pleural plaque without asbestos; I99.9 Unspecified disorder of circulatory system; J84.9 Interstitial pulmonary disease, unspecified; N28.1 Cyst of kidney, acquired; N20.0 Calculus of kidney; M51.36 Other intervertebral disc degeneration, lumbar region; K20.8 Other esophagitis; K22.2 Esophageal obstruction; Z90.49 Acquired absence of other specified parts of digestive tract | CPT/HCPCS: 71260; 74160; 82565; Q9967 ==

== ENCOUNTER → 2020-03-15 | Outpatient (CLI) | payer MEDICARE ==
[~2020-03-15] MED LIST changes: -OMNIPAQUE 350 MG/ML, 100ML BOTTLE ONE
== END | disposition home or self-care (01) ==
LOC: STAR 08:52
PROVIDERS: ATTEND Anesthesiology
DX: Z01.818 Encounter for other preprocedural examination (principal); Z01.89 Encounter for other specified special examinations; Z01.812 Encounter for preprocedural laboratory examination; R79.1 Abnormal coagulation profile; R00.0 Tachycardia, unspecified
CPT/HCPCS: 93005

== ENCOUNTER 2020-08-18 02:15 | Emergency (ER) | payer MEDICARE ==
[~2020-08-18] VITALS: Ht 182.9 cm; Wt 83.8 kg
[~2020-08-18 02:15] MED LIST changes: +AMLO-211 PO; -AMLO10TA8 PO; -LISI40TA PO; +LISI40TA9 PO; -OXYC-302 PO; +OXYC1TAB14 PO
[2020-08-18 02:18] VITALS: BP 158/66
--- NOTE | 2020-08-18 02:42 | NUR ---
REPORT FROM RAÚL MARTIN
[2020-08-18 03:09] LABS: BASOPHILS % (AUTO) 1 % (0-1); EOSINOPHILS % (AUTO) 4 % (1-7); LYMPHOCYTES % (AUTO) 21 % (22-44); MEAN CORPUSCULAR HEMOGLOBIN 28.8 pg (27.5-34.5); MEAN CORPUSCULAR HGB CONC 32.8 g/dL (33.2-36.2); MEAN PLATELET VOLUME 8.7 fL (7.4-10.4); MONOCYTES % (AUTO) 9 % (2-9); NEUTROPHILS % (AUTO) 65 % (42-75); PLATELET COUNT 157 x10^3/uL (130-400); RED BLOOD COUNT 4.52 x10^6/uL (4.38-5.82); RED CELL DISTRIBUTION WIDTH 14.5 % (9.4-14.8)
[2020-08-18 03:10] LABS: MD NO
[2020-08-18 03:18] LABS: ALBUMIN 3.6 g/dL (3.4-5.0); ANION GAP 3 mmol/L (5-15); CALCIUM 9.1 mg/dL (8.5-10.1); CHLORIDE 102 mmol/L (98-107); CREATININE 1.41 mg/dL (0.7-1.3)
[2020-08-18 03:30] LABS: INTERNATIONAL NORMALIZED RATIO 1.03 (0.93-1.1)
--- NOTE | 2020-08-18 03:51 | NUR ---
REPORT TO SID TRANSFER OF CARE AT THIS TIME
--- NOTE | 2020-08-18 03:52 | NUR ---
BEDSIDE REPORT RECEIVED FROM RICO MARTIN
--- NOTE | 2020-08-18 04:01 | NUR ---
Patient given discharge instructions and they have confirmed that they understand the instructions. Patient ambulatory with steady gait.
== END 2020-08-18 04:21 | disposition home or self-care (01) ==
LOC: ED 02:45
DX: K64.8 Other hemorrhoids (principal); K59.00 Constipation, unspecified; I10 Essential (primary) hypertension; E78.5 Hyperlipidemia, unspecified; Z87.891 Personal history of nicotine dependence; Z85.21 Personal history of malignant neoplasm of larynx
CPT/HCPCS: 36415; 80048; 82040; 85025; 85610; 85730; 99283